=== PATIENT | female | born 1990 | race Caucasian/White ===

== ENCOUNTER → 2016-05-19 | Outpatient (CLI) | payer MEDICAID, OTHER ==
[2016-05-19 15:18] LABS: AUTOMATED NEUTROPHIL # 9.7 TH/MM3 (1.8-7.7); BASOPHIL % 0.2 % (0.0-2.0); EOSINOPHIL # 0.1 TH/MM3 (0-0.4); EOSINOPHIL % 0.7 % (0.0-4.0); HEMATOCRIT 34.3 % (35.0-46.0); HEMO FLAGS DIFF FINAL; LYMPH % 12.8 % (9.0-44.0); LYMPHOCYTE # 1.5 TH/MM3 (1.0-4.8); MEAN CELL VOLUME 89.2 FL (80.0-100.0); MEAN CORPUSCULAR HGB CONC 34.8 % (32.0-36.0); MONO % 4.8 % (0.0-8.0); NEUT % 81.5 % (16.0-70.0); PLATELET COUNT 240 TH/MM3 (150-450); RED BLOOD COUNT 3.85 MIL/MM3 (4.00-5.30); RED CELL DISTRIBUTION WIDTH 14.2 % (11.6-17.2)
== END ==
LOC: CPRE 14:56
PROVIDERS: ATTEND Obstetrics & Gynecology
DX: Z01.812 Encounter for preprocedural laboratory examination (principal); O34.32 Maternal care for cervical incompetence, second trimester; Z3A.19 19 weeks gestation of pregnancy
CPT/HCPCS: 36415; 85025; 86850; 86900; 86901

== ENCOUNTER → 2016-05-20 | Day surgery (SDC) | payer MEDICAID, OTHER ==
--- NOTE | 2016-05-19 16:54 | MH ---
cc: DEBORA HIDALGO M.D. DATE OF ADMISSION: 05/20/2016 ADMITTING DIAGNOSIS: SCHEDULED PROCEDURE Cerclage. INDICATIONS: Incompetent cervix. HISTORY OF PRESENT CONDITION: Cari is a 25-year-old white female 2, para 0-0-1-0, with LMP 01/02/16 and EDC 10/01/16 by 15 week ultrasound. She is currently 19-1/2 weeks. She was having her routine anatomy ultrasound when it was found that her cervix was 0.91 cm. She has had cervical cryo and one dilation and curettage. There is funneling. She is having no cramping, no increased discharge, and otherwise doing well. She does work on her feet at [employer]. She has no chronic or systemic illnesses. She does not smoke, drink or use illicit drugs. FAMILY HISTORY: Noncontributory. LABORATORY DATA: Her blood type is O positive. Her hemoglobin is 11.5. Her Pap smear was normal. She is immune to Cymro measles and chicken pox. Cultures were all negative. Thyroid screen was fine. Hepatitis C was negative. AFP was negative. PHYSICAL EXAMINATION: She is a slim white female at 142 pounds. She has no thyroid enlargement. Lungs: Clear. Heart: Rate and rhythm are regular. Breasts: Exam was reassuring. Pelvic: Exam shows the cervix to be closed but it is thin. It does have enough length that I can do a cerclage. Ultrasound today shows a healthy infant at 12 ounces, or 350 grams with good amniotic fluid and anterior placenta, and normal anatomy. Extremities: Unremarkable. IMPRESSION: Funneling and thinning of cervix in a primip at 19 weeks, high risk for pre PROM and delivery prior to viability if cerclage not placed. Risks, benefits, expectations discussed in detail. She has signed consents and is scheduled for tomorrow morning. Debora Hidalgo MD PPC/ELIZABETH /3:50 PM /4:04 PM
[~2016-05-20] VITALS: Ht 160 cm; Wt 64.7 kg
[~2016-05-20] MED LIST: *MEPERIDINE 25 MG INJ VIAL PERIprocedural Use ONLY ONE; *ONDANSETRON 4 MG VIAL PERIprocedural Use ONLY ONE; ACETAMINOPHEN 1000 MG/100 ML VIAL IV ONE; CHLORHEXIDINE GLUCONATE 2 % 1 PACK (2 CLOTHS) TOPICAL PRN; DEXAMETHASONE SOD PHOS 4 MG/ML VIAL ONE; DICLOFENAC SODIUM 37.5 MG/ML VIAL IV PUSH ONE; DO NOT ADM ANY ANTICOAGULANT DRUGS PRN; FAMOTIDINE 20 MG/2 ML VIAL ONE; INSULIN HUMAN REGULAR 1,000 UNITS/10 ML VIAL SQ PRN; LACTATED RINGER'S 1000 ML IV PRN; MEPERIDINE HCL 50 MG/ML VIAL IM ONE; METOPROLOL TARTRATE 25 MG TAB PO PRN; MIDAZOLAM HCL 2 MG/2 ML VIAL ONE; ONDANSETRON HCL 4 MG/2 ML VIAL IV PUSH ONE; POVIDONE IODINE 5% (ANTISEPSIS KIT) 4 APPLICATIONS EACH NARE PRN; PROPOFOL 200 MG/20 ML AMP IV ONE; SODIUM CHLORID 0.9% 500 ML IV PRN; ceFAZolin 1,000 MG/NS 100 ML IV SCH; oxyCODONE/ACETAMINOPHEN 5 MG/325 MG TAB ONE; oxyCODONE/ACETAMINOPHEN 5 MG/325 MG TAB PO PRN
[2016-05-20 05:52] VITALS: BP 112/61; PULSE 80; RESP 20; TEMP 98; O2SAT 98
[2016-05-20 09:41] VITALS: BP 117/74; PULSE 72; RESP 20; TEMP 97.7; O2SAT 100
--- NOTE | 2016-05-22 11:25 | MP ---
cc: DAYA HIDALGO DATE OF SURGERY: 05/20/2016 DATE OF : 1990 POSTOPERATIVE DIAGNOSIS Incompetent cervix with thinning and funneling on ultrasound measurement. POSTOPERATIVE DIAGNOSIS Incompetent cervix with thinning and funneling on ultrasound measurement. PROCEDURE Sanchez cerclage x2. ANESTHESIA LMA general. 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 However, with ring forceps it was possible to create a cervical body for which two stitches of Prolene were placed. Moderate bleeding. No complications. She tolerated the procedure well and went to the Recovery Room in stable condition. She did receive 1 gram of Ancef. PROCEDURE The patient was identified as Nargis Knox. She and her partner Justice had come in for routine ultrasound Tuesday the and were found to have a cervical length of 0.91 cm. She had not had any obvious prior risk factors but they were counseled in depth about risks, benefits, expectations, alternatives of salvage/heroic cerclage. They decided to proceed this morning and she came in, was counseled again in the holding area, taken to the back, placed under general anesthesia in the dorsal lithotomy position, prepped and draped in the usual sterile fashion. She had received 1 gram of Ancef. A time-out was performed. A red rubber was used to empty her bladder. The cervix was gently grasped and placed on gentle traction and the initial stitch was 4-2, 2-10, 10-8 and tied off at 8 o'clock with about 9-10 knots and left long. The second stitch was 3-12, 12-9, 9-6, 6-3 and tied off at the 3 o'clock. This created a very reasonable degree of cervical length. Bleeding was minimal. She tolerated the procedure well. She was put in dorsal supine position, awoken and taken to the Recovery Room in stable condition. Will be counseled on rest this weekend and pelvic rest for the duration of her . Daya Hidalgo MD PPC/BJF /7:57 AM /11:09 AM
== END | disposition home or self-care (01) ==
LOC: HSDC 05:21
PROVIDERS: ATTEND Obstetrics & Gynecology
DX: O34.32 Maternal care for cervical incompetence, second trimester (principal); Z3A.15 15 weeks gestation of pregnancy
CPT/HCPCS: 00948; 59320; J0690; J2175; J2405; J3010; J7120; J0131; J1100; J1130; J2250

== ENCOUNTER 2016-06-15 23:28 | Emergency (ER) | payer MEDICAID, OTHER ==
--- NOTE | 2016-06-16 01:02 | PD ---
HPI Chief Complaint Fall at home and hit her side Date Seen: June 16, 2016 Travel History International Travel<30 Days: No Contact w/Intl Traveler<30Days: No Known Affected Area: No History of Present Illness HPI This patient is 25-year-old female at 23 weeks gestation presents complaining of some left-sided abdominal discomfort after falling at home and hitting her side. She stepped in some water lost her footing and the her feet went one way- she went the other and hit her side. She's had no bleeding or leakage of amniotic fluid. Baby is active. heart rate tracing is within normal limits for 23 weeks, there are several variables noted on the strip but overall variability is good and the rates within normal limits. The patient has a history of incompetent cervix loss and currently has a cerclage in place to was put in about 3 weeks ago, she is seen Dr. Cormier for care Para: 0 : 2 Miscarriage: 1 History Obstetric History Obstetric History 1 loss at 14 weeks and had a D&C afterwards. Was told she had an incompetent cervix and so this she's had a cerclage placed Past Surgical History Narrative Surgical D&C and cerclage Social History Alcohol Use: No Tobacco Use: No Substance Abuse: No Allergies-Medications (Allergen,Severity, Reaction): Coded Allergies: No Known Allergies (Unverified , 05/20/16) Home Meds No Active Prescriptions or Reported Meds Review of Systems General / Constitutional: No: Fever, Weight Gain, Chills, Other Eyes: No: Diploplia, Blurred Vision, Visual changes, Pain, Photophobia HENT: No: Headaches, Vertigo, Lightheadedness Cardiovascular: No: Irregular Rhythm, Chest Pain or Discomfort, Palpitations, Tachycardia, Syncope, Varicosities, Edema, Cyanosis Respiratory: No: Cough, Short of Breath, Other Gastrointestinal: No: Nausea, Vomiting, Diarrhea Genitourinary: No: Decreased Urinary Output, Oliguria Musculoskeletal: No: Limited ROM, Weakness, Cramping, Edema, Pain Skin: No Rash, No Itching, No Dryness, No Lumps, No Change in Pigmentation, No Change in Nails, No Alopecia, No Lesions Neurologic: No: Weakness, Dizziness, Syncope, Focal Abnormalities, Coordination Problem, Headache, Slurred Speech, Seizures Psychiatric: No: Depression, Suicidal Ideations, Homicidal Ideation Endocrine: No: Heat Intolerance, Cold Intolerance, Polydipsia, Polyuria, Other Physical Exam Narrative GENERAL: Well-nourished, well-developed patient. SKIN: Warm and dry. HEAD: Normocephalic and atraumatic. EYES: No scleral icterus. No injection or drainage. ENT: No nasal drainage noted. Mucous membranes pink. Airway patent. NECK: Supple, trachea midline. No JVD. CARDIOVASCULAR: Regular rate and rhythm without murmurs, gallops, or rubs. RESPIRATORY: Breath sounds equal bilaterally. No accessory muscle use. BREASTS: Bilateral exam showed no masses , no retractions, no nipple discharge. ABDOMEN/GI: Abdomen soft, non-tender, bowel sounds present, no rebound, no guarding Gravid to [-23] weeks size Fundal Height: [23-] GENITOURINARY: [-] Membranes: [intact ] Uterine Contractions: [She's had several small runs of some small contractions that are not felt by the patient. And the with oral hydration these contractions have decreased-] FHT's: 133 with moderate variability ] Decels: [Several small variables noted.-] EXTREMITIES: No cyanosis or edema. BACK: Nontender without obvious deformity. No CVA tenderness. NEUROLOGICAL: Awake and alert. Motor and sensory grossly within normal limits. Five out of 5 muscle strength in all muscle groups. Normal speech. MDM Interpretation(s) This patient is 25-year-old female A1 at 23 weeks who fell at home and hit her side on the left. She's had no bleeding but has had some discomfort in that area. She presents now for monitoring. Patient heart rate is within normal limits with several small variable decelerations but otherwise is normal patient states baby is moving, several small runs of the very small contractions were noted with oral hydration these decreased and were insignificant Plan Plan to monitor the patient for 2 hours if all is well patient be discharged home at that time. Diagnosis Diagnosis: Primary Impression: Abdominal pain during in second trimester Additional Impression: Fall Disposition: 01 DISCHARGE HOME Condition: Stable Scripts No Active Prescriptions or Reported Meds Yeyo Gamez II, MD June 16, 2016 01:02
== END 2016-06-16 02:35 | disposition home or self-care (01) ==
LOC: HOBED 23:28
DX: O26.892 Other specified pregnancy related conditions, second trimester (principal); R10.9 Unspecified abdominal pain; W01.0XXA Fall on same level from slipping, tripping and stumbling without subsequent striking against object, initial encounter; Y92.009 Unspecified place in unspecified non-institutional (private) residence as the place of occurrence of the external cause; Z3A.23 23 weeks gestation of pregnancy
CPT/HCPCS: 99284

== ENCOUNTER 2016-10-09 05:21 | Inpatient (IN) | payer MEDICAID ==
[2016-10-09] VITALS (40 sets, daily range): BP systolic 92–145; BP diastolic 53–96; PULSE 73–128; RESP 16–20; TEMP 97.3–98.8
[~2016-10-09] VITALS: Ht 160 cm; Wt 80.3 kg
--- NOTE | 2016-10-09 05:54 | PD ---
HPI Chief Complaint Contractions Date Seen: Oct 09, 2016 Time Seen: 05:30 Travel History International Travel<30 Days: No Contact w/Intl Traveler<30Days: No Known Affected Area: No History of Present Illness HPI 25-year-old 2 para 0 at 40 weeks and 1 day gestation who comes today with contractions since 1 AM. She had a cerclage removed at 37 weeks which was placed for short cervix noted at the first trimester. She is now glenroy every 2 minutes with cervix 1 cm dilated 100% effaced with intact membranes. Weeks Gestation: 40 Para: 0 : 2 Miscarriage: 1 : 0 History Past Medical History Narrative Medical History of childhood asthma no episodes since age 12 Obstetric History Obstetric History One prior SAB with D&C Cerclage placed at second trimester due to short cervix and removed at 37 weeks Past Surgical History Narrative Surgical Cerclage, cryosurgery, D&C Family History Family History: Negative Social History Alcohol Use: No Tobacco Use: No (former smoker) Substance Abuse: No Allergies-Medications (Allergen,Severity, Reaction): Coded Allergies: No Known Allergies (Unverified , 05/20/16) Home Meds No Active Prescriptions or Reported Meds Review of Systems Except as stated in HPI: all other systems reviewed are Neg Physical Exam Narrative GENERAL: Well-nourished, well-developed patient. SKIN: Warm and dry. HEAD: Normocephalic and atraumatic. EYES: No scleral icterus. No injection or drainage. ENT: No nasal drainage noted. Mucous membranes pink. Airway patent. NECK: Supple, trachea midline. No JVD. CARDIOVASCULAR: Regular rate and rhythm without murmurs, gallops, or rubs. RESPIRATORY: Breath sounds equal bilaterally. No accessory muscle use. BREASTS: Bilateral exam showed no masses , no retractions, no nipple discharge. ABDOMEN/GI: Abdomen soft, non-tender, bowel sounds present, no rebound, no guarding Gravid to [-] weeks size Fundal Height: [-] GENITOURINARY: External Genitalia: intact and normal in appearance BUS glands: [Negative-] Cervix: [-] Dilatation: [-1] Effacement: [-] Station: [--2 100] Presentation: [-Vertex] Membranes: [intact ] Uterine Contractions: [Every 2-] FHT's: Category: [1-] Baseline: [-] Reactive: [-] Variability: [-Moderate] Decels: [-] EXTREMITIES: No cyanosis or edema. BACK: Nontender without obvious deformity. No CVA tenderness. NEUROLOGICAL: Awake and alert. Motor and sensory grossly within normal limits. Five out of 5 muscle strength in all muscle groups. Normal speech. Data Data Vital Signs Reviewed: Yes Group B Strep: Negative MDM Medical Record Reviewed: Yes Narrative Course / MDM Assessment: 40+ weeks gestation in early labor Plan: Admit for labor management. Scripts No Active Prescriptions or Reported Meds Bunny Pyle MD Oct 09, 2016 05:54
[2016-10-09 06:30] LABS: BASOPHIL % 0.3 % (0.0-2.0); EOSINOPHIL # 0.1 TH/MM3 (0-0.4); HEMATOCRIT 35.3 % (35.0-46.0); HEMO FLAGS DIFF FINAL; LYMPH % 11.7 % (9.0-44.0); LYMPHOCYTE # 1.7 TH/MM3 (1.0-4.8); MEAN CELL VOLUME 87.1 FL (80.0-100.0); MEAN CORPUSCULAR HEMOGLOBIN 28.7 PG (27.0-34.0); MEAN CORPUSCULAR HGB CONC 32.9 % (32.0-36.0); MONO % 5.8 % (0.0-8.0); NEUT % 81.2 % (16.0-70.0); PLATELET COUNT 266 TH/MM3 (150-450); RED BLOOD COUNT 4.05 MIL/MM3 (4.00-5.30); RED CELL DISTRIBUTION WIDTH 15.3 % (11.6-17.2); WHITE BLOOD COUNT 14.8 TH/MM3 (4.0-11.0)
[2016-10-09] MEDS ORDERED: LACTATED RINGER'S 1000 ML INJ 1,000 ML IV SCH (06:36)
[2016-10-09] MEDS ORDERED: LACTATED RINGER'S 1000 ML INJ 1,000 ML IV PRN (06:36)
--- NOTE | 2016-10-09 06:41 | HHI.HP ---
History & Physical H&P Patient Name: Nargis Knox Unit Number: [id number] Date of : 1990 Patient Status: Admitted Inpatient Attending Doctor: Yas Lutz MD HPI HPI Chief Complaint Contractions Date Seen: Oct 09, 2016 Time Seen: 05:30 Travel History International Travel<30 Days: No Contact w/Intl Traveler<30Days: No Known Affected Area: No History of Present Illness HPI 25-year-old 2 para 0 at 40 weeks and 1 day gestation who comes today with contractions since 1 AM. She had a cerclage removed at 37 weeks which was placed for short cervix noted at the first trimester. She is now glenroy every 2 minutes with cervix 1 cm dilated 100% effaced with intact membranes. Weeks Gestation: 40 Para: 0 : 2 Miscarriage: 1 : 0 History (Limited) History Past Medical History Narrative Medical History of childhood asthma no episodes since age 12 Obstetric History Obstetric History One prior SAB with D&C Cerclage placed at second trimester due to short cervix and removed at 37 weeks Past Surgical History Narrative Surgical Cerclage, cryosurgery, D&C Family History Family History: Negative Social History Alcohol Use: No Tobacco Use: No (former smoker) Substance Abuse: No Allergies-Medications Allergies-Medications (Allergen,Severity, Reaction): Coded Allergies: No Known Allergies (Unverified , 05/20/16) Home Meds No Active Prescriptions or Reported Meds ROS Review of Systems Except as stated in HPI: all other systems reviewed are Neg Physical Exam Physical Exam Narrative GENERAL: Well-nourished, well-developed patient. SKIN: Warm and dry. HEAD: Normocephalic and atraumatic. EYES: No scleral icterus. No injection or drainage. ENT: No nasal drainage noted. Mucous membranes pink. Airway patent. NECK: Supple, trachea midline. No JVD. CARDIOVASCULAR: Regular rate and rhythm without murmurs, gallops, or rubs. RESPIRATORY: Breath sounds equal bilaterally. No accessory muscle use. BREASTS: Bilateral exam showed no masses , no retractions, no nipple discharge. ABDOMEN/GI: Abdomen soft, non-tender, bowel sounds present, no rebound, no guarding Gravid to [-] weeks size Fundal Height: [-] GENITOURINARY: External Genitalia: intact and normal in appearance BUS glands: [Negative-] Cervix: [-] Dilatation: [-1] Effacement: [-] Station: [--2 100] Presentation: [-Vertex] Membranes: [intact ] Uterine Contractions: [Every 2-] FHT's: Category: [1-] Baseline: [-] Reactive: [-] Variability: [-Moderate] Decels: [-] EXTREMITIES: No cyanosis or edema. BACK: Nontender without obvious deformity. No CVA tenderness. NEUROLOGICAL: Awake and alert. Motor and sensory grossly within normal limits. Five out of 5 muscle strength in all muscle groups. Normal speech. Data Data Data Vital Signs Reviewed: Yes Group B Strep: Negative MDM MDM Medical Record Reviewed: Yes Narrative Course / MDM Assessment: 40+ weeks gestation in early labor Plan: Admit for labor management. Scripts No Active Prescriptions or Reported Meds Bunny Pyle MD Oct 09, 2016 05:54 Bunny Pyle MD Oct 09, 2016 06:41
[2016-10-09] MEDS ORDERED: SODIUM CHLORID 0.9% 500 ML INJ 500 ML IV PRN (06:45)
[2016-10-09] MEDS ORDERED: MINERAL OIL 10 ML VIAL TOPICAL PRN (06:45)
[2016-10-09] MEDS ORDERED: LIDOCAINE HCL 1% 50 ML VIAL I-DERMAL PRN (06:45)
[2016-10-09] MEDS ORDERED: OXYTOCIN 30 UNITS-500ML PREMIX 500 ML IV ONE (06:45)
[2016-10-09] MEDS ORDERED: CITRIC ACID-SODIUM CITRATE LIQ 30 ML UDC PO SCH (06:45)
[2016-10-09] MEDS ORDERED: LIDOCAINE HCL 1% 50 ML VIAL INFIL PRN (06:45)
[2016-10-09] MEDS ORDERED: SODIUM CHLOR 0.9% 1000 ML INJ 1,000 ML IV PRN (06:56)
[2016-10-09 07:03] LABS: BACTERIA, URINE RARE /hpf; BLOOD, URINE NEG (NEG); COMMENT (UR) CULT NOT INDICATED; CULTURE IF INDICATED CULT NOT INDICATED; GLUCOSE,URINE NEG (NEG); KETONE, URINE NEG (NEG); NITRITE,URINE NEG (NEG); SQUAMOUS EPITHELIAL CELL URINE 4 /hpf (0-5); URINE COLOR LIGHT-YELLOW (YELLW/STRAW)
[2016-10-09] MEDS ORDERED: TUMS500C CHEW (07:08)
[2016-10-09] MEDS ORDERED: fentaNYL 2MCG-BUPIV 0.125% INJ 100 ML ONE ×2 (10:20→18:22)
[2016-10-09] MEDS ORDERED: ePHEDrine/NS 25 MG/5 ML SYR ONE (10:20)
--- NOTE | 2016-10-09 10:27 | PD.LABORPN ---
Subjective Subjective contractions irreg, thinks she still has a piece of cerclage in place Objective Vital Signs Vital Signs Date Time Temp Pulse Resp B/P (MAP) Pulse Ox O2 Delivery O2 Flow Rate FiO2 10/09/16 07:33 81 117/70 (86) 10/09/16 07:32 98.2 20 Objective Pelvic Exam: Cervix: [-] Dilatation: [-] 1 Effacement: [-] 70 Station: [-] -3 Presentation: [-] Membranes: [intact or ruptured] intact Uterine Contractions: [-] irreg FHT's: Category: [-] 1 Baseline: [-] Reactive: [-] R Variability: [-] Decels: [-] Weeks Gestation: 40 Gest Age Assessed Date: Oct 09, 2016 Gest Age Assessed Time: 11:07 Pt started active labor?: Yes Active labor start date: Oct 09, 2016 Active labor start time: 11:08 Medical induction of labor?: No Artificial rupture of membrane: No Assessment/Plan Problem List: (1) Incompetence of cervix ICD Codes: N88.3 - Incompetence of cervix uteri Status: Acute (2) state, incidental ICD Codes: Z33.1 - state, incidental Status: Acute Assessment and Plan IUP at 40 wks, early labor, GBS neg pt intolerant of speculum exam to remove remainder of cerclage palpable will request epidural and try to remove remainder of stitch Yas Lutz MD Oct 09, 2016 10:27
[2016-10-09] MEDS ORDERED: BUPIVACAINE HCL PF 0.25% 10 ML VIAL ONE (10:41)
[2016-10-09] MEDS ORDERED: OXYTOCIN 30 UNITS-500ML PREMIX 500 ML IV SCH ×2 (11:15→20:15)
[2016-10-09 11:44] LABS: BLOOD, URINE SMALL (NEG); COMMENT (UR) CULT NOT INDICATED; CULTURE IF INDICATED CULT NOT INDICATED; GLUCOSE,URINE NEG (NEG); KETONE, URINE NEG (NEG); MUCUS URINE FEW /lpf (OCC); NITRITE,URINE NEG (NEG); URINE COLOR LIGHT-YELLOW (YELLW/STRAW)
[2016-10-09] MEDS ORDERED: MEASLES, MUMPS, RUBELLA VACCINE 0.5 ML VIAL SQ ONE (16:00)
[2016-10-09] MEDS ORDERED: DIPHTH/TETANUS/ACEL PERTUSSIS (BOOSTER) 0.5 ML VIAL/PFS IM ONE (16:00)
[2016-10-09] MEDS ORDERED: fentaNYL 2MCG-BUPIV 0.125% 100 ML EPIDURAL SCH (19:00)
[2016-10-09] MEDS ORDERED: NO SYSTEM NARCOTICS PRN (19:00)
[2016-10-09] MEDS ORDERED: ePHEDrine/NS 25 MG/5 ML SYR IV PRN (19:00)
[2016-10-09] MEDS ORDERED: DO NOT ADMINISTER ANTICOAGULANTS PRN (19:00)
--- NOTE | 2016-10-09 20:14 | PD.OB.DELI ---
Weeks gestation: 40 Gest age assessed date: Oct 09, 2016 Gest age assessed time: 11:07 Pt started active labor?: Yes Active labor start date: Oct 09, 2016 Active labor start time: 11:08 Medical induction of labor?: No Artificial rupture of membrane: Yes (+mec) Anesthesia: Epidural Episiotomy: None Vaginal Delivery: Normal Presentation: Occiput anterior Nuchal Cord: x1 Delayed cord clamping (45 sec): No Infant: Female Delivery date: Oct 09, 2016 Delivery time: 19:58 One Minute : 7 Five Minute : 8 Weight: 8-9 Placenta: Spontaneous delivery Laceration: 2 deg Repair: Chromic Yas Rodas MD Oct 09, 2016 20:14
[2016-10-09] MEDS ORDERED: ZOLPIDEM TARTRATE 5 MG TAB PO PRN (20:15)
[2016-10-09] MEDS ORDERED: WITCH HAZEL 50%/GLYCERIN 12.5% 40 PAD JAR TOPICAL PRN (20:15)
[2016-10-09] MEDS ORDERED: ONDANSETRON ODT 4 MG TAB PO PRN (20:15)
[2016-10-09] MEDS ORDERED: BENZOCAINE 20% TOPICAL SPRAY 60 ML CAN TOPICAL PRN (20:15)
[2016-10-09] MEDS ORDERED: SODIUM CHLORIDE 0.9% FLUSH 10 ML FLUSH IV FLUSH PRN (20:15)
[2016-10-09] MEDS ORDERED: ALUMINUM/MAGNESIUM/SIMETH 30 ML CUP PO PRN (20:15)
[2016-10-09] MEDS: IBUPROFEN 600 MG TAB PO PRN (20:26)
[2016-10-09] MEDS ORDERED: SODIUM CHLORIDE 0.9% FLUSH 10 ML FLUSH IV FLUSH SCH (21:00)
[2016-10-10 04:00] VITALS: BP 115/65; PULSE 81; RESP 18; TEMP 97.8
[2016-10-10 08:00] VITALS: BP 110/78; PULSE 77; RESP 18; TEMP 98
--- NOTE | 2016-10-10 08:52 | HHI.OB ---
Subjective Post Day: 1 Remarks doing well, no complaints Objective Vitals/I&O Vital Signs Date Time Temp Pulse Resp B/P (MAP) Pulse Ox O2 Delivery O2 Flow Rate FiO2 10/10/16 04:00 115/65 (82) 10/10/16 04:00 97.8 81 18 10/09/16 23:15 97.3 97 18 10/09/16 23:15 131/73 (92) 10/09/16 22:31 79 103/53 (70) 10/09/16 22:16 79 126/71 (89) 10/09/16 22:01 90 138/85 (102) 10/09/16 21:45 87 131/68 (89) 10/09/16 21:31 74 123/60 (81) 10/09/16 21:15 78 127/74 (91) 10/09/16 21:00 98 138/85 (102) 10/09/16 20:56 96 118/78 (91) 10/09/16 20:56 18 10/09/16 20:36 98.8 18 10/09/16 20:30 101 134/75 (94) 10/09/16 20:30 18 10/09/16 20:00 128 138/75 (96) 10/09/16 19:50 18 10/09/16 19:48 83 130/80 (97) 10/09/16 19:01 90 119/69 (86) 10/09/16 18:45 89 135/83 (100) 10/09/16 18:44 97.8 18 10/09/16 18:00 113 134/84 (101) 10/09/16 17:01 101 110/59 (76) 10/09/16 16:00 74 114/71 (85) 10/09/16 15:10 98.3 10/09/16 15:06 18 10/09/16 15:01 74 92/64 (73) 10/09/16 14:00 94 142/81 (101) 10/09/16 13:01 73 124/60 (81) 10/09/16 12:00 93 135/93 (107) 10/09/16 11:35 98.5 18 10/09/16 11:17 127 137/96 (110) 10/09/16 10:57 79 10/09/16 10:57 126/56 (79) 10/09/16 10:55 78 10/09/16 10:50 89 10/09/16 10:47 98 10/09/16 10:47 141/85 (103) 10/09/16 10:45 96 10/09/16 10:40 105 10/09/16 10:35 95 145/78 (100) 10/09/16 10:35 91 10/09/16 10:30 98 10/09/16 10:26 85 126/73 (90) 10/09/16 10:25 16 Objective Remarks GENERAL: Well-nourished, well-developed patient. CARDIOVASCULAR: Regular rate and rhythm without murmurs, gallops, or rubs. RESPIRATORY: Breath sounds equal bilaterally. No accessory muscle use. ABDOMEN/GI: Abdomen soft, non-tender. Fundus: Firm, non-tender at umbilicus. GENITOURINARY: Light to moderate bleeding. EXTREMITIES: No cyanosis or edema, non-tender, without signs of DVT. Medications and IVs Current Medications Medications (Trade) Dose Ordered Sig/Kb Route Start Time Stop Time Status Last Admin (NS Flush) 2 ml BID IV FLUSH 10/09/16 21:00 (NS Flush) 2 ml UNSCH PRN IV FLUSH 10/09/16 20:15 (Tylenol) 650 mg Q4H PRN PO 10/09/16 20:15 (Motrin) 600 mg Q6H PRN PO 10/09/16 20:15 10/09/16 20:26 (Americaine 20% Top Spr) 1 spray Q4H PRN TOPICAL 10/09/16 20:15 (Tucks Pads) 1 applic QID PRN TOPICAL 10/09/16 20:15 (Ct-Colace) 2 tab Q12H PRN PO 10/09/16 20:15 (Ambien) 5 mg HS PRN PO 10/09/16 20:15 (Mag-Al Plus Susp Liq) 15 ml Q8H PRN PO 10/09/16 20:15 (Zofran Odt) 4 mg Q6H PRN PO 10/09/16 20:15 10/09/16 20:30 Assessment/Plan Problem List: (1) Incompetence of cervix ICD Codes: N88.3 - Incompetence of cervix uteri Status: Acute (2) state, incidental ICD Codes: Z33.1 - state, incidental Status: Acute Assessment and Plan S/P PPD #1 routine PP care Discharge Planning in AM Attending Attestation pt seen by Yas Patel MD Oct 10, 2016 08:52
[2016-10-10] MEDS: IBUPROFEN 600 MG TAB PO PRN ×3 (09:22→21:46)
[2016-10-10] MEDS: ACETAMINOPHEN 325 MG TAB PO PRN ×3 (10:59→21:47)
[2016-10-10 21:00] VITALS: BP 121/75; PULSE 76; RESP 18; TEMP 98.1
[2016-10-10] MEDS: DOCUSATE SODIUM 50 MG/SENNA 8.6 MG TAB PO PRN (21:46)
[2016-10-11] MEDS: IBUPROFEN 600 MG TAB PO PRN ×2 (03:14→11:31)
[2016-10-11] MEDS: ACETAMINOPHEN 325 MG TAB PO PRN (03:15)
--- NOTE | 2016-10-11 07:37 | HHI.DCPOC ---
Discharge Care Plan Diagnosis: (1) (spontaneous vaginal delivery) Your Health Problems Are: Vaginal delivery Report Symptoms to Your Doctor -Temperature above 100.5 degrees -Redness, of incision or excessive or foul smelling drainage -Unusual pain or calf pain -Increased vaginal bleeding -Painful or difficulty urinating -Feelings of extreme sadness or anxiety after 2 weeks Goals to Promote Your Health * To prevent worsening of your condition and complications * To maintain your health at the optimal level Directions to Meet Your Goals Take your medications as prescribed Follow your dietary instruction Follow activity as directed Ensure plenty of rest for recovery Drink fluids for hydration Keep your appointments as scheduled Take your immunizations and boosters as scheduled If your symptoms worsen call your PCP, if no PCP go to Urgent Care Center or Emergency Room Smoking is Dangerous to Your Health. Avoid second hand smoke Call the 24-hour crisis hotline for domestic abuse at Meera David MD Oct 11, 2016 07:37
[2016-10-11 08:00] VITALS: BP 137/82; PULSE 78; RESP 16; TEMP 97.8
--- NOTE | 2016-10-11 11:24 | HHI.OB ---
Subjective Post Day: 2 Objective Vitals/I&O Vital Signs Date Time Temp Pulse Resp B/P (MAP) Pulse Ox O2 Delivery O2 Flow Rate FiO2 10/11/16 08:00 78 16 137/82 (100) 10/11/16 08:00 97.8 10/10/16 21:00 76 18 121/75 (90) 10/10/16 21:00 98.1 Objective Remarks GENERAL: Well-nourished, well-developed patient. CARDIOVASCULAR: Regular rate and rhythm without murmurs, gallops, or rubs. RESPIRATORY: Breath sounds equal bilaterally. No accessory muscle use. ABDOMEN/GI: Abdomen soft, non-tender. Fundus: Firm, non-tender at umbilicus. GENITOURINARY: Light to moderate bleeding. EXTREMITIES: No cyanosis or edema, non-tender, without signs of DVT. Medications and IVs Current Medications Medications (Trade) Dose Ordered Sig/Kb Route Start Time Stop Time Status Last Admin (NS Flush) 2 ml BID IV FLUSH 10/09/16 21:00 (NS Flush) 2 ml UNSCH PRN IV FLUSH 10/09/16 20:15 (Tylenol) 650 mg Q4H PRN PO 10/09/16 20:15 10/11/16 03:15 (Motrin) 600 mg Q6H PRN PO 10/09/16 20:15 10/11/16 03:14 (Americaine 20% Top Spr) 1 spray Q4H PRN TOPICAL 10/09/16 20:15 10/10/16 09:22 (Tucks Pads) 1 applic QID PRN TOPICAL 10/09/16 20:15 10/10/16 09:22 (Ct-Colace) 2 tab Q12H PRN PO 10/09/16 20:15 10/10/16 21:46 (Ambien) 5 mg HS PRN PO 10/09/16 20:15 (Mag-Al Plus Susp Liq) 15 ml Q8H PRN PO 10/09/16 20:15 (Zofran Odt) 4 mg Q6H PRN PO 10/09/16 20:15 10/09/16 20:30 (Percocet 5-325 Mg) 1 tab ONCE ONCE PO 10/11/16 11:30 10/11/16 11:31 Assessment/Plan Problem List: (1) Incompetence of cervix ICD Codes: N88.3 - Incompetence of cervix uteri Status: Acute (2) state, incidental ICD Codes: Z33.1 - state, incidental Status: Acute Assessment and Plan S/P PPD #2 routine PP care d/c to home today Discharge Planning in AM Meera David MD Oct 11, 2016 11:24
[2016-10-11] MEDS ORDERED: IBUP-232 PO (11:25)
[2016-10-11] MEDS ORDERED: SENN1TAB PO (11:25)
[2016-10-11] MEDS ORDERED: oxyCODONE/ACETAMINOPHEN 5 MG/325 MG TAB PO ONE (11:30)
[2016-10-11] MEDS: DOCUSATE SODIUM 50 MG/SENNA 8.6 MG TAB PO PRN (11:31)
--- NOTE | 2016-10-12 10:15 | MP ---
cc: VLADISLAV LUTZ DATE OF SURGERY 10/10/2016 PREOPERATIVE DIAGNOSIS Retained cerclage in a patient 40 weeks in labor. POSTOPERATIVE DIAGNOSIS Retained cerclage in a patient 40 weeks in labor. PROCEDURE Examination under epidural anesthesia, cerclage removal. SURGEON Dr. Lutz ANESTHESIA Epidural. PROCEDURE The patient was positioned in the dorsal lithotomy position. A weighted speculum was placed in the vagina and an anterior retractor was used to retract the anterior vaginal mucosa. A ring forceps was placed on the anterior lip of the cervix and the cervix was followed around in a clockwise fashion until the cerclage knot was noted. This was grasped with the ring forceps and it was cut under the knot with scissors. The cerclage was removed in total with the knot as well as the loop and shown to the patient. All of the instruments were removed from the vagina. Hemostasis was assured and there was no specimen. MD DARIUS Pizarro/AYDE /9:57 AM /10:08 AM
== END 2016-10-11 14:58 | disposition home or self-care (01) | DRG 775 ==
LOC: HOBED 05:21 → H2EB 05:56 → H1EA 22:48
PROVIDERS: ADMIT Obstetrics & Gynecology; ATTEND Obstetrics & Gynecology
PROC: 10E0XZZ Delivery of Products of Conception, External Approach (ICD-10-PCS; principal; 2016-10-09)
PROC: 0KQM0ZZ Repair Perineum Muscle, Open Approach (ICD-10-PCS; 2016-10-09)
DX: O26.873 Cervical shortening, third trimester (principal); O69.81X0 Labor and delivery complicated by cord around neck, without compression, not applicable or unspecified; Z37.0 Single live birth; Z3A.40 40 weeks gestation of pregnancy; O70.1 Second degree perineal laceration during delivery
CPT/HCPCS: 80307; 81001; 85025; 90715; 99285; J2590; J7120